=== PATIENT | female | born 1955 | race Caucasian/White ===

== ENCOUNTER 2021-03-13 10:44 | Emergency (ER) | payer SELFPAY ==
--- NOTE | 2021-03-13 13:08 | EDM.PDOC ---
ED HPI GENERAL MEDICAL PROBLEM - General Chief Complaint: General Stated Complaint: NO TASTE,NO SMELL,LATHARGIC, COUGH Time Seen by Provider: 03/13/21 12:45 Source of Information: Reports: Patient, Old Records, RN History Limitations: Reports: No Limitations - History of Present Illness INITIAL COMMENTS - FREE TEXT/NARRATIVE: 65 yo female presents on about day 14 of her Covid illness. Was not tested, but saw a provider who assumed she had it and prescribed some tx's. She is still very fatigued so came here instead of rechecking in the clinic. Not running a fever. Cough is a little productive. Has minimal co-morbidities. Not vaccinated for Covid. Onset: Gradual Onset Date: 02/27/21 Duration: Week(s): (2), Waxing/Waning Location: Reports: Generalized Quality: Reports: Other (pain not reported. ) Severity: Moderate Improves with: Reports: Rest Worsens with: Reports: Movement (exertion) Context: Reports: Other (See hPI) Associated Symptoms: Reports: Cough, Malaise, Shortness of Breath (mild), Other (fatigue). 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: Reports: - Past Surgical History GI Surgical History: Reports: Colonoscopy, Other (See Below) Other GI Surgeries/Procedures: colon polyp Social & Family History - Tobacco Use Tobacco Use Status *Q: Never Tobacco User Second Hand Smoke Exposure: No - Caffeine Use Caffeine Use: Reports: None - Recreational Drug Use Recreational Drug Use: No ED ROS GENERAL - Review of Systems Review Of Systems: See Below Constitutional: Reports: Malaise, Weakness, Fatigue HEENT: Reports: No Symptoms Respiratory: Reports: Shortness of Breath (mild), Cough, Sputum Cardiovascular: Reports: No Symptoms GI/Abdominal: Reports: No Symptoms : Reports: No Symptoms Musculoskeletal: Reports: No Symptoms Skin: Reports: No Symptoms Neurological: Reports: No Symptoms Psychiatric: Reports: No Symptoms ED EXAM, GENERAL - Physical Exam Exam: See Below Exam Limited By: No Limitations General Appearance: Alert, WD/WN, No Apparent Distress Eye Exam: Bilateral Eye: Normal Inspection Ears: Normal External Exam, Normal Canal, Hearing Grossly Normal Ear Exam: Bilateral Ear: Auricle Normal, Canal Normal Nose: Normal Inspection, No Blood Throat/Mouth: Normal Inspection, Normal Lips, Normal Voice, No Airway Compromise Head: Atraumatic, Normocephalic Neck: Normal Inspection Respiratory/Chest: No Respiratory Distress, No Accessory Muscle Use, Crackles (mild) Cardiovascular: Regular Rate, Rhythm, No Edema GI/Abdominal: Soft, Non-Tender Extremities: Normal Inspection Neurological: Alert, Oriented, CN II-XII Intact, Normal Cognition, No Motor/Sensory Deficits Psychiatric: Normal Affect, Normal Mood Skin Exam: Warm, Dry, Intact, Normal Color, No Rash Course - Vital Signs Last Recorded V/S: Last Vital Signs Temp 36.5 C 03/13/21 12:35 Pulse 92 03/13/21 12:35 Resp 22 H 03/13/21 12:35 BP 183/100 H 03/13/21 12:35 Pulse Ox 94 L 03/13/21 12:35 - Orders/Labs/Meds Labs: Laboratory Tests 03/13/21 Range/Units 12:19 SARS CoV-2 RNA Rapid MACHELLE Positive H Departure - Departure Time of Disposition: 13:15 Disposition: Home, Self-Care 01 Condition: Fair Clinical Impression: COVID-19 - Discharge Information *PRESCRIPTION DRUG MONITORING PROGRAM REVIEWED*: Not Applicable *COPY OF PRESCRIPTION DRUG MONITORING REPORT IN PATIENT JATIN: Not Applicable Instructions: COVID-19 Frequently Asked Questions, 10 Things You Can Do to Manage Your COVID-19 Symptoms at Home - [facility] (11/10/2020) Referrals: Remi Azevedo MD [Primary Care Provider] - Additional Instructions: Make sure you are taking zinc about 25-50 mg daily. Vitamin D 4000 U daily. Acetaminophen for pain or fever control. Fluids to stay hydrated. Isolate yourself for another 5 days or so to prevent spread. Stay in touch with your provider. Sepsis Event Note (ED) - Evaluation Sepsis Screening Result: No Definite Risk - Focused Exam Vital Signs: Vital Signs Temp Pulse Resp BP Pulse Ox 03/13/21 12:35 36.5 C 92 22 H 183/100 H 94 L 03/13/21 12:15 36.5 C 92 22 H 183/100 H 94 L
== END 2021-03-13 13:32 | disposition home or self-care (01) ==
LOC: JP.ED 10:44
DX: U07.1 COVID-19 (principal); I10 Essential (primary) hypertension; Z79.899 Other long term (current) drug therapy
CPT/HCPCS: 99283; U0002